=== PATIENT | male | born 1965 | race Hispanic/Latino ===

== ENCOUNTER → 2020-08-20 | Day surgery (SDC) | payer OTHER ==
[2020-08-18 15:28] LABS: ANION GAP 15.3 mmol/L (8-16); BLOOD UREA NITROGEN 15 mg/dL (7-26); BUN/CREATININE RATIO 14 (6-25); CALCIUM 9.6 mg/dL (8.4-10.2); CARBON DIOXIDE 28 mmol/L (22-29); CHLORIDE 100 mmol/L (98-107); CREATININE, SERUM 1.04 mg/dL (0.72-1.25); EST GLOMERULAR FILTRATION RATE > 60 ML/MIN (60-); GLUCOSE 140 mg/dL (74-118); POTASSIUM 4.3 mmol/L (3.5-5.1); SODIUM 139 mmol/L (136-145)
[~2020-08-20] MED LIST: AUGMENTIN 500-1 EACH PO; BENAZEPRIL HCL40 MG PO; CEFTRIAXONE SOD 1 GM VIAL ONE; CIPRO500 MG PO; DEXAMETHASONE SOD PHOS INJ 4 MG/ML VIAL ONE; DOCUSATE SODIU100 MG PO; FENTANYL CITRATE/PF 100MCG/2 ML INJ ONE; FLOMAX0.4 MG PO; GLIPIZIDE XL10 MG PO; HYDROCHLOROTHIA25 MG PO; LIDOCAINE HCL 2% LOCAL INJ 5 ML SDV VIAL INJ ONE; MIDAZOLAM HCL 2 MG/2 ML VIAL ONE; MULTI-VITAMIN1 EACH PO; ONDANSETRON HCL INJ 2MG/ML 2ML 2 MG/ML VIAL ONE; PHENYLEPHRINE HCL 1% 10 MG/ML VIAL ONE; PROPOFOL IV EMULSION 10 MG/ML 20 ML VIAL ONE; SEVOFLURANE INHAL SOLN 250 ML PEN BTL ONE; URSODIOL300 MG PO; VITAMIN E400 UNI1 PO; WELCHOL3.75 GM PO
[2020-08-20 10:07] VITALS: BP 113/66
== END | disposition home or self-care (01) ==
LOC: OR 06:56
PROVIDERS: ATTEND Urology
DX: N20.0 Calculus of kidney (principal); I10 Essential (primary) hypertension; E78.5 Hyperlipidemia, unspecified; E11.9 Type 2 diabetes mellitus without complications; Z01.810 Encounter for preprocedural cardiovascular examination; Z01.812 Encounter for preprocedural laboratory examination; Z01.818 Encounter for other preprocedural examination; Z20.822 Contact with and (suspected) exposure to COVID-19
CPT/HCPCS: 36415 ×2; 50590; 74018; 80048; 82948; 93005; J0696; J1100; J2001; J2250; J2370; J2405; J2704; J3010; U0002